=== PATIENT | female | born 1990 | race Caucasian/White ===

== ENCOUNTER 2018-05-11 11:45 | Day surgery (SDC) | payer BC ==
[2018-05-10 12:21] VITALS: BMI 26.6
[2018-05-11] MEDS ORDERED: Dexamethasone 20 MG/5 ML VIAL ONE (11:57)
[2018-05-11] MEDS ORDERED: Ondansetron PF 4 MG/2 ML Vial ONE (11:57)
[2018-05-11] MEDS ORDERED: PROPOFOL 200 MG/20 ML VIAL ONE (11:57)
[2018-05-11] MEDS ORDERED: Lidocaine 1% PF 5 ML VIAL ONE (11:57)
[2018-05-11 13:35] LABS: BHCG - Serum Negative (NEGATIVE); Pregs Control Background? CLEAR/WHITE (CLR/WHITE); Pregs Control Bar Appear? YES (CONTROL BAR)
[2018-05-11] MEDS ORDERED: Midazolam HCl 2 mg/2 ml Vial ONE ×2 (15:26→15:34)
[2018-05-11] MEDS ORDERED: Fentanyl 100 MCG/2 ML VIAL ONE ×2 (15:34→16:56)
[2018-05-11] MEDS ORDERED: Hydrocodone-Acetamin 15 ML UDCUP ONE (17:55)
--- NOTE | 2018-05-11 19:53 | OP ---
PREOPERATIVE DIAGNOSES: Obstructive tonsillar hypertrophy, chronic tonsillitis. POSTOPERATIVE DIAGNOSES: Obstructive tonsillar hypertrophy, chronic tonsillitis. PROCEDURES PERFORMED: Tonsillectomy and adenoidectomy over 12 years of age. PROCEDURE IN DETAIL: After consent was obtained, the patient was identified, brought to the operatin g room, and placed on the operating table in the supine position. General endotracheal anesthesia an d intravenous access was obtained and we proceeded with positioning the patient for oropharyngeal bettye florinda. Oropharyngeal exposure was obtained with a Edie-Kai mouth gag after a head drape was placed and secured with a towel clip. The Edie-Kai mouth gag was then suspended from the Baez tray and palatal elevation was achieved with a red rubber catheter. We first addressed the adenoid bed and vi sualized it under direct mirror visualization with a dental mirror. Under direct visualization, the adenoids were removed with multiple passes of the adenoid curet. The Kurt-Synephrine saturated gauze sponge was then placed in the nasopharynx and an appropriate period for hemostasis was observed while the nasal pack was in place. We proceeded with a tonsillectomy. The right tonsil was addressed fir st. We used a curved Allis to grasp the tonsil and retract it medially as an anterior pillar incisio n was made with a #12 blade. The retrotonsillar fascial plane was then established and blunt dissect ion was performed with the suction cautery. Blood vessels were anticipated, identified, and cauteriz ed as they were encountered. Ultimately, dissection was carried to the posterior tonsillar pillar mu cosa which was incised hemostatically, as well as the base of tongue connection. The tonsil was then passed off as a specimen and bleeding points within the tonsillar bed were cauterized under direct v isualization. We subsequently turned our attention to the contralateral side, where using a similar technique, a near identical procedure was performed. Again, the tonsil was grasped and retracted med ially with a curved Allis as an anterior pillar incision was made with a #12 blade. The retrotonsill ar fascial plane was established and while the anterior pillar was retracted medially, the hemostatic blunt dissection of the tonsil with a suction cautery was performed with blood vessels anticipated, identified, and cauterized as they were encountered. Again, dissection continued to the base of tong ue and posterior tonsillar pillar mucosa which was incised in a hemostatic fashion. The tonsillar be ds were then carefully inspected and bleeding points were identified and cauterized with a suction ca utery. We then removed the nasopharyngeal pack, suctioned the residual blood and the adenoid bed was then cauterized under direct mirror visualization and residual adenoid tissue was vaporized at this time. After this portion of the procedure, hemostasis was completely obtained. The patient's nasal cavity, nasopharyngeal, and oral cavity were copiously irrigated with iced saline and subsequently jackson ctioned. We then used the red rubber catheter to suction the gastric contents and the patient was jackson bsequently aroused, awakened, and extubated without difficulty and transported to the recovery room i n stable condition. There were no complications. FINDINGS: Very large tonsils and significant adenoid tissue were encountered and addressed during th e procedure.
== END 2018-05-11 18:25 | disposition home or self-care (01) ==
LOC: SDC 11:45
PROVIDERS: ATTEND Specialist
PROC: 0CBPXZZ Excision of Tonsils, External Approach (ICD-10-PCS; principal; 2018-05-11)
PROC: 0C5QXZZ Destruction of Adenoids, External Approach (ICD-10-PCS; principal; 2018-05-11)
DX: J35.01 Chronic tonsillitis (principal); G47.30 Sleep apnea, unspecified
CPT/HCPCS: 36415; 84703; 85014; 88304; 96374; J2250; J3010